=== PATIENT | male | born 2005 | race Asian ===

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

== ENCOUNTER 2024-06-09 21:35 | Emergency (ER) | payer OTHER, SELFPAY ==
--- OUTSIDE RECORDS SUMMARY | 2024-06-09 21:37 | XMS_ITS | Clinical Summary ---
Author Organization [facility] Address [place], [place] [address] Care Team Providers Care Bolt Machine Operator Name Role Phone Sophy Overton DO Primary Care Provider [phone] Allergies No known active allergies Medications multivitamin (MVI) tablet Take 1 Tablet by mouth once daily. 0 05/28/2021 Active Active Problems No known active problems Immunizations Name Administration Dates Next Due Bacillus Calmette-Cinthia (BCG) 2004 COVID-19 vaccine ([employer] 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 MENINGOCOCCAL VACCINE 2 VIAL 2MO-55YO (MENVEO) 05/28/2021 MMR 04/27/2009,11/01/2005 Pneumococcal conj 13-Valent (Prevnar 13) 06/30/2005,01/29/2005 Rotavirus Attenuated (Rotarix) 06/30/2005,2004 Tdap 05/28/2021 Varicella Vaccine 10/26/2009,03/05/2007 Social History Tobacco Use Types Packs/Day Years Used Date Smoking Tobacco: Never Smokeless Tobacco: Never Tobacco Cessation:Counseling Given: Yes Alcohol Use Standard Drinks/Week Comments Never 0 (1 standard drink = 0.6 oz pur e alcohol) PHQ-2 Answer Date Recorded PHQ-2 TOTAL SCORE 0 08/02/2022 Social Connections Answer Date Recorded Frequency of Communication with Friends and Fami ly Not on file 08/11/2023 Financial Resource Strain Answer Date R ecorded Difficulty of Paying Living Expenses 3 08/02/2022 Difficulty of Paying Living Expenses Not on file 08/02/2022 Food Insecurity Answer Date Recorded Worried About Running Out of Food in the Last Ye ar 1 08/02/2022 Transportation Needs Answer Date Record ed Lack of Transportation (Medical) 1 08/02/2022 Housing Stability Answer Date Recorded Unable to Pay for Housing in the Last Year 1 08/02/2022 Sex and Gender Information Value Date Recorded Sex Assigned at Not on file Legal Sex Male 7:15 AM [employer] Gender Identity Not on file Sexual Orientation Not on file Occupation Industry Job Start Date Job End Date student Not on file Not on file Not on file Obstetrics History Last Filed Vital Signs Vital Sign Reading Time Taken Comments Blood Pressure 110/74 08/02/2022 8:34 AM CDT Pulse 85 08/02/2022 8:34 AM CDT Temperature 36.8 C (98.2 F) 08/09/2017 3:25 PM CDT Respiratory Rate - - Oxygen Saturation 99% 08/02/2022 8:34 AM CDT Inhaled Oxygen Concentration - - Weight 71.7 kg (158 lb) 08/02/2022 8:34 AM CDT Height 177.4 cm (5' 9.84) 08/02/2022 8:34 AM CD T Body Mass Index 22.77 08/02/2022 8:34 AM CDT Body Mass Index Percentile 63.22% 08/02/2022 8:3 4 AM CDT Growth Chart: CDC (Boys, 2-2 0 Years) Plan of Treatment Health Maintenance Due Date Last Done Comments HIV for age 15-65 10/21/2019 BMI (ht and wt on same day) for age 18+ 2022 Hepatitis C screening for age 18-79 2022 Depression screening for age 12+ 08/03/2023 08/02/2022, 05/28/2021 Well Child Check for age 3-20 08/03/2023 08/02/2022, 05/28/2021, 08/09/2017 COVID-19 vaccine series ( season) 2024 06/10/2022, 05/28/2021, 10/25/2020, Additional history exists Influenza for age 9-49 01/15/2024 , 02/25/2019, 03/02/2018 Tetanus booster 05/28/2031 05/28/2021 Pneumococcal series for age 6-49 Aged Out 06/30/2005, 01/29/2005 No longer eligibl e based on patient's age to complete this topic HPV series for age 9-26 Completed 05/28/2021, 08/09 Meningococcal series for age 11-21 Completed 05/28/2021 Tdap Completed 05/28/2021 Insurance MEDICA CHOICE MEDICA CHOICE Care Teams Bolt Machine Operator Relationship Specialty Start Date End Date Sophy Overton [place] [address] PCP - General Family Practice 08/02/22
[2024-06-09 22:20] VITALS: BP 110/74; PULSE 114; RESP 20; TEMP 38.5; O2SAT 98
[2024-06-09 22:26] VITALS: BP 105/71; PULSE 114; RESP 16; TEMP 38.5; O2SAT 95; BMI 24.4
[2024-06-09 23:00] VITALS: O2SAT 95
[2024-06-09 23:02] LABS: Strep A DNA Probe* NOT DETECTED (Not Detectd)
--- NOTE | 2024-06-09 23:12 | ED.FEVER ---
HPI - Fever General Time Seen by Provider: 23:16 Date Seen: 06/09/24 Chief Complaint: Fever Stated Complaint: fever Time Seen by Provider: 06/09/24 23:10 Source: patient, RN notes reviewed and old records reviewed Mode of arrival: ambulatory Limitations: no limitations History of Present Illness HPI Narrative: 18-year-old male who presents today with fever and cough. This is been going on since yesterday. Also complains of generalized abdominal pain. No headache, no sore throat, no neck pain, no shortness of breath, no diarrhea. Has been taking Tylenol and ibuprofen for symptoms. Eating and drinking normally. Related Data Home Medications ?Medication ?Instructions ?Recorded ?Confirmed isotretinoin 40 mg capsule 80 mg PO DAILY 02/06/23 02/06/23 (Amnesteem) Allergies Allergy/AdvReac Type Severity Reaction Status Date / Time No Known Drug Allergies Allergy Verified 06/09/24 22:29 [facility] Medical History (Updated 06/10/24 @ 01:06 by Kaiser Breen MD) No significant past medical history Surgical History (Updated 06/09/24 @ 22:30 by Jack Wills RN) No significant past surgical history Social History Smoking Status: Never smoker Do you use any of these nicotine containing products: None How often do you have a drink containing alcohol: never AUDIT-C Alcohol total score: 0 Non-prescribed substance use: denies use Exam Narrative Exam Narrative: General: Well-developed and well-nourished, no acute distress Head: Atraumatic and normocephalic Eyes: Pupils are equal reactive, extraocular motions intact, conjunctiva clear ENT: External nose and ears are normal, posterior pharynx without erythema or exudate Neck: No midline cervical tenderness, full spontaneous range of motion the neck, trachea midline, no adenopathy Heart: Tachycardic but regular Lungs: Trace crackles and coarse expiratory wheeze on the left Abdomen: Soft, mild diffuse tenderness,, nondistended with active bowel sounds Musculoskeletal: No tenderness, deformity, or edema Neurologic: Awake, alert, and oriented x3, no gross focal neurologic deficits, cranial nerves intact as tested Psych: Mood and affect are appropriate Skin: No rashes Const Vital Signs, click to edit/add: Vital Signs - 24 hr 01/25/25 22:20 06/09/24 22:26 06/09/24 23:15 Temperature 101.3 F H 101.3 F H 101.3 F H Pulse Rate [Pulse Oximeter] 114 H Pulse Rate [Right Pulse Oximeter] 114 H Respiratory Rate 20 16 Blood Pressure [Left Arm] 110/74 Blood Pressure [Right Upper Arm] 105/71 Pulse Oximetry 98 95 Oxygen Delivery Method Room Air Room Air Course Course ED Course: Reviewed prior emergency department evaluation from January 2023 when patient was seen for chest pain, negative cardiac evaluation no evidence for pericarditis, patient was discharged with instruction for symptom treatment. Patient presents to the emergency department today with fever since yesterday, also slight cough. Diffuse abdominal pain. No vomiting or diarrhea, no breathing difficulty, no sore throat, no headache or neck pain. On exam here, patient is febrile and mildly tachycardic, generally well-appearing. Moves easily throughout the exam. Tachycardic, no cervical adenopathy, posterior pharynx without erythema or exudate. Trace expiratory wheezing crackle in the left lung field. Mild diffuse abdominal tenderness particularly in the midline. Labs independently interpreted by me with negative strep test, negative viral panel. Given initial negative testing, additional evaluation ordered including labs, chest x-ray. If these do not reveal source of patient's fever, consider CT scan of the abdomen and pelvis. Reevaluation(s) Time of Reevaluation #1: 00:09 Reevaluation #1: Labs independently interpreted by me with normal CBC, normal lactate, normal basic panel, urinalysis without evidence of infection. Time of Reevaluation #2: 00:49 Reevaluation #2: Chest x-ray independently interpreted by me with retrocardiac infiltrate. Patient was started on Augmentin and doxycycline for community-acquired pneumonia. Time of Reevaluation #3: 01:06 Reevaluation #3: Reviewed radiology interpretation of CT chest x-ray which agrees with my initial interpretation. Vital Signs Vital signs: Initial Vital Signs Temperature 101.3 F H 06/09/24 22:20 Temperature Source Temporal Artery Scan 06/09/24 22:20 Pulse Rate 114 H 06/09/24 22:20 Respiratory Rate 20 06/09/24 22:20 Respiratory Effort Normal, Spontaneous, Non-Labored, Shortness of Breath at Re 06/09/24 22:20 Respiratory Depth Normal 06/09/24 22:20 Blood Pressure 110/74 06/09/24 22:20 Blood Pressure Mean 86 06/09/24 22:20 Blood Pressure Position Sitting 06/09/24 22:20 Pulse Oximetry 98 06/09/24 22:20 Oxygen Delivery Method Room Air 06/09/24 22:20 Sepsis Recent Fever Within 48 Hours Yes 06/09/24 22:20 Sepsis New/Unexplained Change in Mental Status No 06/09/24 22:20 Sepsis Action Taken by Nursing Physician Notified 06/09/24 22:20 Vital Signs Temperature 101.3 F H 06/09/24 22:20 Pulse Rate 114 H 06/09/24 22:20 Respiratory Rate 20 06/09/24 22:20 Blood Pressure 110/74 06/09/24 22:20 Pulse Oximetry 98 06/09/24 22:20 Oxygen Delivery Method Room Air 06/09/24 22:20 Temperature 101.3 F H 06/09/24 23:15 Pulse Rate 114 H 06/09/24 22:26 Respiratory Rate 16 06/09/24 22:26 Blood Pressure 105/71 06/09/24 22:26 Pulse Oximetry 95 06/09/24 22:26 Oxygen Delivery Method Room Air 06/09/24 22:26 Medications Administered Medications: Generic Name Dose Route Start Last Admin Trade Name Freq PRN Reason Stop Dose Admin Sodium Chloride 1,000 mls @ 1,000 mls/hr 06/09/24 23:30 06/09/24 23:34 0.9 % Sodium Chloride 1000 Ml IV 06/10/24 00:29 1,000 mls/hr .Q1H JAKOB Administration Ibuprofen 600 mg 06/09/24 23:17 06/09/24 23:32 Ibuprofen 600 Mg Tablet PO 06/09/24 23:18 Not Given ONCE ONE Discontinued Medications Generic Name Dose Route Start Last Admin Trade Name Freq PRN Reason Stop Dose Admin Ibuprofen 600 mg 06/09/24 22:34 06/09/24 23:15 Ibuprofen 600 Mg Tablet PO 06/09/24 22:35 600 mg ONCE ONE Administration MDM - Fever Lab Data Labs: Lab Results 06/09/24 06/09/24 06/09/24 Range/Units 22:25 23:30 23:35 WBC 7.34 (4.50-11.00) K/uL RBC 4.86 (4.30-5.90) m/uL Hgb 14.6 (13.5-17.5) gm/dL Hct 43.0 (37.0-53.0) % MCV 89 (80-100) fL MCH 30 (26-34) pg MCHC 34 (32-36) gm/dL RDW Coeff of Jodi 11.4 L (11.5-15.5) % Plt Count 107 L (140-440) K/uL Neut % (Auto) 71.3 (42.0-72.0) % Lymph % (Auto) 16.8 L (20-44) % [place] % (Auto) 11.2 H (0.0-11.0) % Eos % (Auto) 0.3 (0.0-7.0) % Baso % (Auto) 0.1 (0.0-3.0) % Neut # (Auto) 5.24 (1.7-7.0) K/uL Lymph # (Auto) 1.20 (0.90-2.90) K/uL [place] # (Auto) 0.80 (0.00-0.90) K/UL Eos # (Auto) 0.02 (0.00-0.50) K/uL Baso # (Auto) 0.01 (0.00-0.30) K/uL Abs Immat Gran (auto) 0.02 (0.00-0.30) K/uL Imm/Tot Granulo (auto) 0.3 % Sodium 136 (135-149) mmol/L Potassium 3.8 (3.6-5.1) mmol/L Chloride 101 (96-114) mmol/L Carbon Dioxide 26 (20-32) mmol/L Anion Gap 9 (7-15) mEq/L BUN 10 (5-24) mg/dL Creatinine 0.9 (0.6-1.2) mg/dL Estimated Creat Clear 136.31 Estimated GFR 126 ml/min Glucose 122 H (60-115) mg/dL Lactate 0.8 (0.5-1.9) mmol/L Calcium 8.9 (8.7-10.8) mg/dL Urine Color Yellow (Yellow) Urine Appearance Clear (Clear) Urine pH 6.5 (5.0-8.5) Ur Specific [place] 1.015 (1.000-1.030) Urine Protein Trace A (Negative) Urine Glucose (UA) Negative (Negative) Urine Ketones 1+ A (Negative) Urine Blood 1+ A (Negative) Urine Nitrite Negative (Negative) Urine Bilirubin Negative (Negative) Urine Urobilinogen 0.2 (0.2-1.0) Ur Leukocyte Esterase Negative (Negative) Urine RBC 0-2 (0-2) Urine WBC 0-2 (0-5) Ur Squamous Epith Cells None (None-Few) Urine Bacteria None (None) SARS-CoV-2 (PCR) Negative SARS-CoV-2 (Negative) Influenza Type A (PCR) Negative PCR FLU A (Negative) Influenza Type B (PCR) Negative PCR FLU B (Negative) RSV (PCR) Negative PCR RSV (Negative) Group A Strep DNA NOT DETECTED (Not Detectd) Discharge Plan Discharge Clinical Impression: Community acquired pneumonia Patient Disposition: Home, Self-Care Condition: Stable Instructions: Community Acquired Pneumonia (DC) Additional Instructions: Take Tylenol and ibuprofen as needed for fever or pain Take Augmentin and doxycycline as prescribed Follow-up with your primary care provider in 3-5 days Activity Level: Activity as Tolerated Discharge Diet: Regular Prescriptions: No Action isotretinoin [Amnesteem] 40 mg capsule 80 mg PO DAILY Follow Up/Referrals: JAHAIRA GALINDO DO [Primary Care Provider] - Stand Alone Forms: [facility] Info Instructions
[2024-06-09 23:15] VITALS: TEMP 38.5
[2024-06-09 23:15] LABS: PCR FLU A Negative PCR FLU A (Negative); PCR FLU B Negative PCR FLU B (Negative); PCR RSV Negative PCR RSV (Negative); SARS PCR* Negative SARS-CoV-2 (Negative)
[2024-06-09] MEDS: IBUPROFEN 600 MG TABLET PO (23:15)
[2024-06-09 23:33] LABS: Lactate* 0.8 mmol/L (0.5-1.9)
[2024-06-09] MEDS: 0.9 % SODIUM CHLORIDE 1000 ml 1,000 ML IV (23:34)
[2024-06-09 23:51] LABS: Chloride* 101 mmol/L (96-114)
[2024-06-09 23:52] LABS: Potassium* 3.8 mmol/L (3.6-5.1); Sodium* 136 mmol/L (135-149)
[2024-06-09 23:53] LABS: Basophils Absolute Auto 0.01 K/uL (0.00-0.30); Basophils Percent Auto 0.1 % (0.0-3.0); Eosinophils Absolute Auto 0.02 K/uL (0.00-0.50); Eosinophils Percent Auto 0.3 % (0.0-7.0); Hemoglobin* 14.6 gm/dL (13.5-17.5); Immature Granulocytes Abs Auto 0.02 K/uL (0.00-0.30); Immature Granulocytes Pct Auto 0.3 %; Lymphocytes Percent Auto 16.8 % (20-44); Mean Corpuscular HGB Conc 34 gm/dL (32-36); Mean Corpuscular Hemoglobin 30 pg (26-34); Mean Corpuscular Volume 89 fL (80-100); Monocytes Percent Auto 11.2 % (0.0-11.0); Neutrophils Absolute Auto 5.24 K/uL (1.7-7.0); Neutrophils Percent Auto 71.3 % (42.0-72.0); Platelet Count* 107 K/uL (140-440); RDW Coefficient of Variation % 11.4 % (11.5-15.5); Red Blood Count 4.86 m/uL (4.30-5.90); White Blood Count* 7.34 K/uL (4.50-11.00)
[2024-06-09 23:54] LABS: Appearance Urine Clear (Clear); Bilirubin Urine Negative (Negative); Blood Urine 1+ (Negative); Color Urine Yellow (Yellow); Glucose Urine Negative (Negative); Ketones Urine 1+ (Negative); Leukocyte Esterase Urine Negative (Negative); Nitrite Urine Negative (Negative); Protein Urine Trace (Negative); Specific Gravity Urine 1.015 (1.000-1.030); Urobilinogen Urine 0.2 (0.2-1.0); pH Urine 6.5 (5.0-8.5)
[2024-06-09 23:54] LABS: Creatinine* 0.9 mg/dL (0.6-1.2); Est. Creatinine Clearance* 136.31; Estimated Glomerular Filt Rate 126 ml/min
[2024-06-09 23:55] LABS: Anion Gap 9 mEq/L (7-15); Blood Urea Nitrogen* 10 mg/dL (5-24); Calcium* 8.9 mg/dL (8.7-10.8); Carbon Dioxide* 26 mmol/L (20-32); Glucose* 122 mg/dL (60-115)
--- NOTE | 2024-06-10 | CRLHL7_ITS ---
For Patients: As a result of the Century Cures Act, medical imaging exams and procedure reports are released immediately into your electronic medical record. You may view this report before your referring provider. If you have questions, please contact your health care provider. INDICATION: Chest pain. TECHNIQUE: Chest 2 views. COMPARISON: None. FINDINGS: Cardiovascular and mediastinum: Heart size and vasculature are normal in caliber and appearance. Lungs and pleural spaces: Focal retrocardiac consolidation. No sign of pleural effusion. No pneumothorax. Bones and soft tissues: No significant findings. IMPRESSION: Focal retrocardiac consolidation, likely pneumonia in the appropriate clinical setting. Dictated by Deven Bishop MD @ 06/10/2024 12:58:38 AM (Electronically Signed)
[2024-06-10 00:01] LABS: RBC Urine 0-2 (0-2); WBC Urine 0-2 (0-5)
--- OUTSIDE RECORDS SUMMARY | 2024-06-10 00:02 | XMS_ITS | Clinical Summary ---
Author Organization [facility] Address [place], [place] [address] Care Team Providers Care Caul Puller Name Role Phone Sophy Overton DO Primary Care Provider [phone] Allergies No known active allergies Medications multivitamin (MVI) tablet Take 1 Tablet by mouth once daily. 0 05/28/2021 Active Active Problems No known active problems Immunizations Name Administration Dates Next Due Bacillus Calmette-Cinthia (BCG) 2004 COVID-19 vaccine ([employer] 30mcg/0.3mL) PF, MDV 05/28/2021 DTaP 01/14/2010, 7,04/26/2005,02/26,2004 HPV 9 (Gardasil 9) 05/28/2021,08/09/2017 Hepatitis A (Peds) 01/21/2008,07/20/2007 Hepatitis B (Peds) 04/26/2005,2004, 005 Hib Conjugate, Unspecified 05/16/2006,,02/26/2005,01/03 Inactivated Polio Vaccine 01/14/2010,04/2005,02/26/2005,12/24 Influenza, IIV3 (Age 6-35 mos) 03/02/2017,2015 Influenza, IIV4 06/10/2022,02/25/2019,03/02/2018 [place]zbek Encephalitis 01/24/2011 MENINGOCOCCAL VACCINE 2 VIAL 2MO-55YO [...] on file 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
[2024-06-10 01:09] VITALS: TEMP 37.2
[2024-06-10 01:10] VITALS: BP 110/74; PULSE 95; RESP 16; TEMP 37.2; O2SAT 95
[2024-06-10 01:11] VITALS: BP 110/74; PULSE 95; RESP 16; TEMP 37.2
[2024-06-10 01:11] LABS: Slide Review Reflex No
== END 2024-06-10 01:11 | disposition home or self-care (01) ==
PROVIDERS: Emergency Provider Family Medicine; PCP Student in an Organized Health Care Education/Training Program
DX: J18.9 Pneumonia, unspecified organism (principal)
CPT/HCPCS: 36415; 71046; 80048; 81001; 83605; 85025; 87631; 87651; 94761; 96360; 99284; A9270; J7030